=== PATIENT | female | born 1995 | race Caucasian/White ===

== ENCOUNTER 2019-02-10 10:21 | Emergency (ER) | payer SELFPAY ==
[~2019-02-10] VITALS: Ht 152.4 cm; Wt 54.4 kg
[~2019-02-10 10:21] MED LIST: BACTRIM DS 8001 TA1 PO; BIRTH CONTROL1 EAC1 PO; MOTRIN400 MG PO; ROBITUSSIN DM120 ML PO
[2019-02-10] MEDS ORDERED: IBUPROFEN600 MG PO (11:33)
[2019-02-10] MEDS ORDERED: CEFDINIR300 MG PO (11:33)
[2019-02-10] MEDS ORDERED: CORTISPORIN SUS10 ML OT (11:33)
== END 2019-02-10 11:35 | disposition home or self-care (01) ==
LOC: ED 10:21
DX: H66.91 Otitis media, unspecified, right ear (principal); B02.8 Zoster with other complications; H60.91 Unspecified otitis externa, right ear; H92.02 Otalgia, left ear; F17.200 Nicotine dependence, unspecified, uncomplicated; Z88.0 Allergy status to penicillin; Z88.1 Allergy status to other antibiotic agents; Z79.899 Other long term (current) drug therapy